=== PATIENT | female | born 1960 | race African-American/Black ===

== ENCOUNTER → 2018-01-08 | Outpatient (CLI) | payer MEDICARE, MEDICAID | END | disposition home or self-care (01) | LOC: MAMMO 07:23 | PROVIDERS: ATTEND Internal Medicine Pulmonary Disease | DX: Z12.31 Encounter for screening mammogram for malignant neoplasm of breast (principal) | CPT/HCPCS: 77067 ==

== ENCOUNTER 2018-02-02 16:22 | Emergency (ER) | payer MEDICARE, MEDICAID ==
[~2018-02-02] VITALS: Ht 172.7 cm; Wt 70.0 kg
[2018-02-02 19:10] VITALS: BP 159/109
[2018-02-02] MEDS ORDERED: LORAZEPAM 1MG TABLET PO ONE (19:15)
== END 2018-02-02 19:49 | disposition home or self-care (01) ==
LOC: ER 16:36
DX: F41.1 Generalized anxiety disorder (principal)
CPT/HCPCS: 99284

== ENCOUNTER 2018-06-27 15:23 | Emergency (ER) | payer MEDICARE, MEDICAID ==
[~2018-06-27] VITALS: Ht 167.6 cm; Wt 82.0 kg
[2018-06-27] MEDS ORDERED: KETOROLAC 60MG/2ML VIAL IM ONE (16:45)
[2018-06-27 17:08] LABS: BASOPHILS % 0.3 % (0.0-2.0); EOSINOPHILS % 0.8 % (0.0-5.0); HEMATOCRIT. 35.9 % (36.0-48.0); HEMOGLOBIN. 11.9 g/dL (12.0-16.0); LYMPHOCYTES % 35.9 % (20.0-50.0); MEAN CORPUSCULAR HEMOGLOBIN 31.2 pg (28.0-32.0); MEAN CORPUSCULAR VOLUME 94.1 fL (81.0-99.0); MEAN PLATELET VOLUME 9.8 fl (7.4-10.4); PLATELET 160 x1000/uL (130-400); RED BLOOD CELL COUNT 3.81 mill/uL (4.2-5.4); RED CELL DISTRIBUTION WIDTH 15.6 % (11.6-14.6)
[2018-06-27 17:16] LABS: CHLORIDE 106 mEq/L (98-107)
[2018-06-27 17:18] VITALS: BP 130/70
[2018-06-27 17:23] LABS: CREATINE KINASE 244 IU/L (26-192)
== END 2018-06-27 18:40 | disposition home or self-care (01) ==
LOC: ER 15:23
DX: R07.89 Other chest pain (principal); M54.9 Dorsalgia, unspecified; F32.9 Major depressive disorder, single episode, unspecified; F20.9 Schizophrenia, unspecified; V43.52XA Car driver injured in collision with other type car in traffic accident, initial encounter; Y93.89 Activity, other specified; Y92.89 Other specified places as the place of occurrence of the external cause; Y99.8 Other external cause status
CPT/HCPCS: 36415; 71045; 80053; 82550; 84484; 85025; 93005; 96372; 99285; J1885

== ENCOUNTER 2019-08-26 12:09 | Emergency (ER) | payer MEDICARE, MEDICAID ==
[~2019-08-26] VITALS: Ht 167.6 cm; Wt 81.0 kg
[2019-08-26 12:25] VITALS: BP 131/48
== END 2019-08-26 14:38 | disposition home or self-care (01) ==
LOC: ER 12:09
DX: R20.2 Paresthesia of skin (principal); F20.9 Schizophrenia, unspecified; F39 Unspecified mood [affective] disorder; I49.9 Cardiac arrhythmia, unspecified
CPT/HCPCS: 93005; 99283

== ENCOUNTER 2019-11-29 14:08 | Inpatient (IN) | payer MEDICARE, MEDICAID ==
[~2019-11-29] VITALS: Ht 167.6 cm; Wt 81.6 kg
[2019-11-30] MEDS ORDERED: ONDANSETRON HCL 4MG/2ML INJ IV STA (00:58)
[2019-11-30] MEDS ORDERED: SODIUM CHLORIDE 0.9% 1,000 ML IV ONE (00:58)
[2019-11-30 01:12] LABS: BASOPHILS % 0.2 % (0.0-2.0); EOSINOPHILS % 0.2 % (0.0-5.0); HEMATOCRIT. 45.6 % (36.0-48.0); HEMOGLOBIN. 15.1 g/dL (12.0-16.0); LYMPHOCYTES % 30.8 % (20.0-50.0); MEAN CORPUSCULAR HEMOGLOBIN 31.2 pg (28.0-32.0); MEAN CORPUSCULAR VOLUME 94.2 fL (81.0-99.0); MEAN PLATELET VOLUME 9.1 fl (7.4-10.4); MONOCYTES % 7.3 % (2.0-8.0); NEUTROPHILS % 61.5 % (40.0-76.0); PLATELET 271 x1000/uL (130-400); RED BLOOD CELL COUNT 4.84 mill/uL (4.2-5.4)
[2019-11-30 01:23] LABS: CHLORIDE 99 mEq/L (98-107)
[2019-11-30 01:32] LABS: CLARITY URINE CLEAR (CLEAR); COLOR URINE YELLOW (YELLOW); KETONES URINE 1+ (NEGATIVE); LEUKOCYTE ESTERASE URINE 1+ (NEGATIVE); NITRITE URINE NEGATIVE (NEGATIVE); OCCULT BLOOD URINE NEGATIVE (NEGATIVE); PH URINE 5.5 (4.5-8.0); PROTEIN URINE TRACE (NEGATIVE); SPECIFIC GRAVITY URINE 1.021 (1.005-1.030)
[2019-11-30 09:45] VITALS: BP 158/68
[2019-11-30] MEDS ORDERED: ONDA4TAB11 PO (10:24)
[2019-11-30] MEDS ORDERED: DIVA125T2 MT (10:24)
[2019-11-30] MEDS ORDERED: DOCU-138 MT (10:24)
[2019-11-30] MEDS ORDERED: QUET25TA MT (10:24)
[2019-11-30] MEDS ORDERED: RISP05 MT (10:24)
[2019-11-30] MEDS ORDERED: DIVALPROEX SODIUM 500MG ER TABLET PO SCH (10:45)
[2019-11-30] MEDS ORDERED: ONDANSETRON HCL 4MG/2ML INJ IV PRN (10:45)
[2019-11-30] MEDS ORDERED: KETOROLAC 15MG/ML VIAL IV PRN (10:45)
[2019-11-30 11:13] VITALS: BP 159/68
[2019-11-30] MEDS: OMEPRAZOLE 20MG CAPSULE EXTENDED RELEASE PO SCH (11:29)
[2019-11-30] MEDS: ENOXAPARIN 40MG/0.4ML SYR SUBCUT SCH (11:30)
[2019-11-30 12:00] VITALS: BP 149/75
[2019-11-30] MEDS: DEXT 5%/0.45% NACL KCL 20MEQ/L 1,000 ML IV SCH (13:44)
[2019-11-30 16:00] VITALS: BP 153/68
[2019-11-30] MEDS ORDERED: BENZTROPINE MESYLATE 1MG TABLET PO SCH (17:00)
[2019-11-30 20:00] VITALS: BP 120/55
[2019-11-30] MEDS ORDERED: MAGNESIUM HYDROXIDE 400MG/5ML 30ML UDC PO NR (20:45)
[2019-11-30] MEDS ORDERED: MAGNESIUM HYDROXIDE 400MG/5ML 30ML UDC PO PRN (20:45)
[2019-11-30] MEDS ORDERED: RISPERIDONE 1MG TABLET PO SCH (21:00)
[2019-12-01] VITALS: BP 135/67
[2019-12-01] MEDS: DEXT 5%/0.45% NACL KCL 20MEQ/L 1,000 ML IV SCH (02:42)
[2019-12-01 04:00] VITALS: BP 117/59
[2019-12-01] MEDS: OMEPRAZOLE 20MG CAPSULE EXTENDED RELEASE PO SCH (06:28)
[2019-12-01 07:19] LABS: BASOPHILS % 0.4 % (0.0-2.0); EOSINOPHILS % 0.4 % (0.0-5.0); HEMATOCRIT. 41.5 % (36.0-48.0); HEMOGLOBIN. 13.8 g/dL (12.0-16.0); LYMPHOCYTES % 29.7 % (20.0-50.0); MEAN CORPUSCULAR HEMOGLOBIN 31.3 pg (28.0-32.0); MEAN PLATELET VOLUME 8.9 fl (7.4-10.4); MONOCYTES % 6.8 % (2.0-8.0); NEUTROPHILS % 62.7 % (40.0-76.0); PLATELET 238 x1000/uL (130-400); RED BLOOD CELL COUNT 4.42 mill/uL (4.2-5.4); RED CELL DISTRIBUTION WIDTH 14.5 % (11.6-14.6)
[2019-12-01 08:00] VITALS: BP 147/69
[2019-12-01] MEDS: ENOXAPARIN 40MG/0.4ML SYR SUBCUT SCH (09:09)
[2019-12-01 09:44] LABS: CHLORIDE 103 mEq/L (98-107)
[2019-12-01 10:01] LABS: PHOSPHORUS 2.9 mg/dL (2.5-4.9)
[2019-12-01 12:00] VITALS: BP 140/69
[2019-12-01] MEDS ORDERED: IOHEXOL-300 100 ML BOTTLE ONE (14:06)
== END 2019-12-01 13:31 | disposition left against medical advice (07) | DRG 440 ==
LOC: ER 14:08 → CANRESERV 11-30 05:41 → ENRESERV 11-30 05:41 → 6EST 11-30 05:45 → EDBEDREQ 11-30 05:46 → EDBEDREQTM 11-30 05:46 → ENRESERV 11-30 08:31 → 6EST 11-30 10:55
PROVIDERS: ADMIT Internal Medicine Pulmonary Disease; ATTEND Internal Medicine Pulmonary Disease
DX: K85.90 Acute pancreatitis without necrosis or infection, unspecified (principal); F20.9 Schizophrenia, unspecified; F31.9 Bipolar disorder, unspecified; I10 Essential (primary) hypertension; K21.9 Gastro-esophageal reflux disease without esophagitis; K59.00 Constipation, unspecified; K86.9 Disease of pancreas, unspecified; N95.0 Postmenopausal bleeding; Z80.1 Family history of malignant neoplasm of trachea, bronchus and lung; Z98.1 Arthrodesis status; Z87.891 Personal history of nicotine dependence; Z53.29 Procedure and treatment not carried out because of patient's decision for other reasons
CPT/HCPCS: 36415; 74177; 76705; 76830; 76856; 80048; 80053; 81003; 83735; 84100; 85025; 86301; 86850; 86900; 99285; J1650; J2405; J7030; Q9967

== ENCOUNTER 2020-01-01 12:16 | Emergency (ER) | payer MEDICARE, MEDICAID ==
[~2020-01-01] VITALS: Ht 167.6 cm; Wt 82.0 kg
[~2020-01-01 12:16] MED LIST: DIVA125T2 MT; DOCU-138 MT; ONDA4TAB11 PO; QUET25TA MT; RISP05 MT
[2020-01-01 13:21] LABS: HEMATOCRIT. 42.6 % (36.0-48.0); HEMOGLOBIN. 14.5 g/dL (12.0-16.0); MEAN CORPUSCULAR HEMOGLOBIN 32.3 pg (28.0-32.0); MEAN CORPUSCULAR VOLUME 94.7 fL (81.0-99.0); PLATELET 211 x1000/uL (130-400); RED CELL DISTRIBUTION WIDTH 14.6 % (11.6-14.6)
[2020-01-01 13:25] LABS: CHLORIDE 102 mEq/L (98-107)
[2020-01-01 13:30] LABS: ETHANOL BLOOD < 10 mg/dL
[2020-01-01 14:05] LABS: PLATELET ESTIMATE NORMAL
[2020-01-01] MEDS ORDERED: SODIUM CHLORIDE 0.9% 1,000 ML IV NR (14:10)
[2020-01-01 15:05] LABS: *BARBITURATES SCREEN URINE NEGATIVE (NEGATIVE); *BENZODIAZEPINES SCREEN URINE NEGATIVE (NEGATIVE); *COCAINE SCREEN URINE NEGATIVE (NEGATIVE); METHADONE URINE SCREEN NEGATIVE (NEGATIVE)
[2020-01-01 15:06] LABS: *AMPHETAMINES SCREEN URINE NEGATIVE (NEGATIVE); CANNABINOID URINE SCREEN NEGATIVE (NEGATIVE); PHENCYCLIDINE URINE SCREEN NEGATIVE (NEGATIVE)
[2020-01-01] MEDS ORDERED: POTASSIUM CHLORIDE 20MEQ TABLET SR PO ONE ×2 (17:15→21:30)
[2020-01-01] MEDS ORDERED: LORAZEPAM 2MG/ML CPJ IM PRN (17:30)
[2020-01-01] MEDS ORDERED: HALOPERIDOL LACTATE 5MG/ML VIAL IM ONE (17:30)
[2020-01-01] MEDS ORDERED: MAGNESIUM 2 G PREMIX 50 ML IV ONE (18:15)
[2020-01-02 20:13] LABS: OPIATES URINE SCREEN NEGATIVE (NEGATIVE)
[2020-01-02] MEDS ORDERED: LORAZEPAM 2MG/ML CPJ IM ONE (20:15)
[2020-01-03 10:13] LABS: CLARITY URINE CLEAR (CLEAR); COLOR URINE YELLOW (YELLOW); KETONES URINE 1+ (NEGATIVE); LEUKOCYTE ESTERASE URINE 2+ (NEGATIVE); NITRITE URINE NEGATIVE (NEGATIVE); OCCULT BLOOD URINE NEGATIVE (NEGATIVE); PH URINE 6.5 (4.5-8.0); PROTEIN URINE NEGATIVE (NEGATIVE); SPECIFIC GRAVITY URINE 1.012 (1.005-1.030)
[2020-01-03] MEDS ORDERED: LORAZEPAM 2MG/ML CPJ IM PRN (19:00)
[2020-01-04 11:13] LABS: CHLORIDE 106 mEq/L (98-107)
[2020-01-04 16:14] VITALS: BP 147/78
== END 2020-01-04 16:43 ==
LOC: ER 12:34 → CANBEDREQ 01-02 02:03 → ER 01-04 16:43
DX: F23 Brief psychotic disorder (principal); I10 Essential (primary) hypertension; F31.9 Bipolar disorder, unspecified; G40.909 Epilepsy, unspecified, not intractable, without status epilepticus; Z75.1 Person awaiting admission to adequate facility elsewhere
CPT/HCPCS: 36415; 71045; 80048; 80053; 80305; 80320; 81025; 83880; 84484; 85025; 85379; 93005; 96365; 96372; 99285; J1630; J2060; J3475; G0480

== ENCOUNTER 2020-08-25 17:33 | Emergency (ER) | payer MEDICARE, MEDICAID ==
[~2020-08-25] VITALS: Ht 165.1 cm; Wt 75.0 kg
[2020-08-25] MEDS ORDERED: ONDANSETRON HCL 4MG/2ML INJ IV STA (18:34)
[2020-08-25 18:53] LABS: BASOPHILS % 0.6 % (0.0-2.0); EOSINOPHILS % 1.1 % (0.0-5.0); HEMATOCRIT. 37.8 % (36.0-48.0); HEMOGLOBIN. 12.6 g/dL (12.0-16.0); MEAN CORPUSCULAR HEMOGLOBIN 31.8 pg (28.0-32.0); MEAN CORPUSCULAR VOLUME 95.7 fL (81.0-99.0); MEAN PLATELET VOLUME 9.3 fl (7.4-10.4); MONOCYTES % 7.4 % (2.0-8.0); NEUTROPHILS % 48.9 % (40.0-76.0); PLATELET 194 x1000/uL (130-400); RED BLOOD CELL COUNT 3.95 mill/uL (4.2-5.4); RED CELL DISTRIBUTION WIDTH 16.6 % (11.6-14.6)
[2020-08-25 18:59] LABS: CHLORIDE 104 mEq/L (98-107)
[2020-08-25] MEDS ORDERED: MORPHINE SULFATE 4 MG/ML CPJ (NOT FOR IM USE) IV ONE (21:00)
[2020-08-25] MEDS ORDERED: ONDANSETRON HCL 4MG/2ML INJ IV ONE (21:00)
[2020-08-25 21:50] VITALS: BP 128/52
== END 2020-08-25 22:01 | disposition home or self-care (01) ==
LOC: ER 17:33
DX: R10.13 Epigastric pain (principal); Z98.1 Arthrodesis status
CPT/HCPCS: 36415; 76705; 80053; 85025; 96374; 96375; 96376; 99285; J2270; J2405

== ENCOUNTER 2020-08-27 21:53 | Emergency (ER) | payer MEDICARE, MEDICAID | END 2020-08-27 22:08 | disposition left against medical advice (07) | LOC: ER 21:53 | DX: Z53.21 Procedure and treatment not carried out due to patient leaving prior to being seen by health care provider (principal) ==

== ENCOUNTER 2020-11-09 06:42 | Emergency (ER) | payer MEDICARE, MEDICAID ==
[~2020-11-09] VITALS: Ht 167.6 cm; Wt 79.2 kg
[2020-11-09] MEDS ORDERED: OLANZAPINE 10MG TABLET PO STA (07:39)
[2020-11-09] MEDS ORDERED: ACETAMINOPHEN 325MG TABLET PO STA (07:39)
[2020-11-09 07:57] LABS: BASOPHILS % 0.5 % (0.0-2.0); EOSINOPHILS % 0.1 % (0.0-5.0); HEMATOCRIT. 38.9 % (36.0-48.0); LYMPHOCYTES % 19.7 % (20.0-50.0); MEAN CORPUSCULAR HEMOGLOBIN 31.2 pg (28.0-32.0); MEAN CORPUSCULAR VOLUME 93.3 fL (81.0-99.0); MEAN PLATELET VOLUME 9.1 fl (7.4-10.4); MONOCYTES % 8.9 % (2.0-8.0); NEUTROPHILS % 70.8 % (40.0-76.0); PLATELET 189 x1000/uL (130-400); RED BLOOD CELL COUNT 4.17 mill/uL (4.2-5.4); RED CELL DISTRIBUTION WIDTH 14.3 % (11.6-14.6)
[2020-11-09 08:05] LABS: CHLORIDE 102 mEq/L (98-107)
[2020-11-09 08:08] LABS: ETHANOL BLOOD < 10 mg/dL
[2020-11-09] MEDS ORDERED: POTASSIUM CHLORIDE 20MEQ TABLET SR PO ONE (08:15)
[2020-11-09 13:36] LABS: CLARITY URINE CLEAR (CLEAR); COLOR URINE YELLOW (YELLOW); KETONES URINE 3+ (NEGATIVE); LEUKOCYTE ESTERASE URINE 1+ (NEGATIVE); NITRITE URINE NEGATIVE (NEGATIVE); OCCULT BLOOD URINE NEGATIVE (NEGATIVE); PROTEIN URINE 1+ (NEGATIVE); SPECIFIC GRAVITY URINE 1.026 (1.005-1.030); UROBILINOGEN URINE 0.2 E.U./dL (0.2-1.0)
[2020-11-09 13:58] LABS: *AMPHETAMINES SCREEN URINE NEGATIVE (NEGATIVE); *BARBITURATES SCREEN URINE NEGATIVE (NEGATIVE); *COCAINE SCREEN URINE NEGATIVE (NEGATIVE); METHADONE URINE SCREEN NEGATIVE (NEGATIVE); OPIATES URINE SCREEN NEGATIVE (NEGATIVE)
[2020-11-09 13:59] LABS: CANNABINOID URINE SCREEN NEGATIVE (NEGATIVE); PHENCYCLIDINE URINE SCREEN NEGATIVE (NEGATIVE)
[2020-11-09 14:00] LABS: *BENZODIAZEPINES SCREEN URINE NEGATIVE (NEGATIVE)
[2020-11-09] MEDS: NITROFURANTOIN 100MG M/M CAPSULE PO SCH (22:27)
[2020-11-10] MEDS: NITROFURANTOIN 100MG M/M CAPSULE PO SCH ×2 (09:00→21:00)
[2020-11-10] MEDS: LORAZEPAM 1MG TABLET PO PRN (11:37)
[2020-11-10] MEDS ORDERED: LORAZEPAM 2MG/ML CPJ IM STA (20:49)
[2020-11-10] MEDS ORDERED: OLANZAPINE 10 MG/VIAL IM ONE (21:00)
[2020-11-11] MEDS: NITROFURANTOIN 100MG M/M CAPSULE PO SCH (14:00)
[2020-11-11] MEDS: LORAZEPAM 1MG TABLET PO PRN (15:22)
[2020-11-11] MEDS ORDERED: OLANZAPINE 10 MG/VIAL IM ONE (18:30)
[2020-11-11] MEDS ORDERED: OLANZAPINE 5MG TABLET PO STA (18:37)
[2020-11-11] MEDS ORDERED: POTASSIUM CHLORIDE 20MEQ TABLET SR PO NR (18:45)
[2020-11-11] MEDS ORDERED: LORAZEPAM 1MG TABLET PO ONE (18:45)
[2020-11-11 20:01] VITALS: BP 129/54
== END 2020-11-11 20:43 ==
LOC: ER 06:42
DX: F23 Brief psychotic disorder (principal); E87.6 Hypokalemia; Z20.822 Contact with and (suspected) exposure to COVID-19
CPT/HCPCS: 36415; 70450; 80053; 80305; 80320; 81003; 85025; 87426; 93005; 96372; 99285; J2060; J3490; G0480

== ENCOUNTER 2021-02-04 15:56 | Emergency (ER) | payer MEDICARE, MEDICAID ==
[~2021-02-04] VITALS: Ht 167.6 cm; Wt 81.0 kg
[2021-02-04 16:33] VITALS: BP 180/80
== END 2021-02-04 18:00 | disposition left against medical advice (07) ==
LOC: ER 16:15
DX: Z53.21 Procedure and treatment not carried out due to patient leaving prior to being seen by health care provider (principal); R51.9 Headache, unspecified

== ENCOUNTER 2021-02-10 08:48 | Emergency (ER) | payer MEDICARE, MEDICAID ==
[~2021-02-10] VITALS: Ht 167.6 cm; Wt 79.0 kg
[2021-02-10] MEDS ORDERED: SODIUM CHLORIDE 0.9% 1,000 ML IV ONE (09:15)
[2021-02-10 09:26] LABS: BASOPHILS % 0.4 % (0.0-2.0); EOSINOPHILS % 0.4 % (0.0-5.0); HEMATOCRIT. 41.4 % (36.0-48.0); HEMOGLOBIN. 13.5 g/dL (12.0-16.0); MEAN CORPUSCULAR HEMOGLOBIN 30.3 pg (28.0-32.0); MEAN CORPUSCULAR VOLUME 93.4 fL (81.0-99.0); MEAN PLATELET VOLUME 8.9 fl (7.4-10.4); MONOCYTES % 7.8 % (2.0-8.0); NEUTROPHILS % 65.4 % (40.0-76.0); PLATELET 218 x1000/uL (130-400); RED BLOOD CELL COUNT 4.44 mill/uL (4.2-5.4); RED CELL DISTRIBUTION WIDTH 14.3 % (11.6-14.6)
[2021-02-10 09:32] LABS: CHLORIDE 104 mEq/L (98-107)
[2021-02-10 09:37] LABS: ETHANOL BLOOD < 10 mg/dL
[2021-02-10 10:45] VITALS: BP 151/80
== END 2021-02-10 11:54 | disposition home or self-care (01) ==
LOC: ER 09:05
DX: F29 Unspecified psychosis not due to a substance or known physiological condition (principal); Z79.899 Other long term (current) drug therapy
CPT/HCPCS: 36415; 70450; 71045; 80053; 80307; 80320; 82140; 82962; 83880; 84443; 84484; 85025; 93005; 96360; 99285; J7030; G0480

== ENCOUNTER → 2021-09-13 | Outpatient (CLI) | payer MEDICARE, MEDICAID | END | disposition home or self-care (01) | LOC: RAD 08:48 | PROVIDERS: ATTEND Internal Medicine Pulmonary Disease | DX: Z12.31 Encounter for screening mammogram for malignant neoplasm of breast (principal); J98.4 Other disorders of lung; N64.89 Other specified disorders of breast | CPT/HCPCS: 71046; 77063; 77067 ==

== ENCOUNTER 2022-02-07 16:53 | Emergency (ER) | payer MEDICARE, MEDICAID | END 2022-02-07 19:00 | disposition left against medical advice (07) | LOC: ER 16:53 | DX: M54.9 Dorsalgia, unspecified (principal); Z53.21 Procedure and treatment not carried out due to patient leaving prior to being seen by health care provider ==

== ENCOUNTER 2023-01-16 07:03 | Emergency (ER) | payer MEDICARE, MEDICAID ==
[~2023-01-16] VITALS: Ht 167.6 cm; Wt 68.0 kg
[2023-01-16 07:16] VITALS: BP 209/95
[2023-01-16 10:08] LABS: BASOPHILS % 0.4 % (0.0-2.0); EOSINOPHILS % 0.2 % (0.0-5.0); HEMATOCRIT. 39.4 % (36.0-48.0); HEMOGLOBIN. 13.1 g/dL (12.0-16.0); LYMPHOCYTES % 35.9 % (20.0-50.0); MEAN CORPUSCULAR HEMOGLOBIN 31.2 pg (28.0-32.0); MEAN PLATELET VOLUME 8.9 fl (7.4-10.4); MONOCYTES % 6.6 % (2.0-8.0); NEUTROPHILS % 56.9 % (40.0-76.0); PLATELET 224 x1000/uL (130-400); RED BLOOD CELL COUNT 4.19 mill/uL (4.2-5.4); RED CELL DISTRIBUTION WIDTH 14.6 % (11.6-14.6)
[2023-01-16 10:19] LABS: CHLORIDE 104 mEq/L (98-107)
[2023-01-16 10:33] LABS: ETHANOL BLOOD < 10 mg/dL
[2023-01-16 14:01] LABS: CLARITY URINE CLEAR (CLEAR); COLOR URINE YELLOW (YELLOW); KETONES URINE 2+ (NEGATIVE); LEUKOCYTE ESTERASE URINE 1+ (NEGATIVE); NITRITE URINE NEGATIVE (NEGATIVE); OCCULT BLOOD URINE NEGATIVE (NEGATIVE); PROTEIN URINE TRACE (NEGATIVE); SPECIFIC GRAVITY URINE 1.023 (1.005-1.030)
[2023-01-16 14:19] LABS: *AMPHETAMINES SCREEN URINE NEGATIVE (NEGATIVE); *BARBITURATES SCREEN URINE NEGATIVE (NEGATIVE); *BENZODIAZEPINES SCREEN URINE NEGATIVE (NEGATIVE); *COCAINE SCREEN URINE NEGATIVE (NEGATIVE); CANNABINOID URINE SCREEN NEGATIVE (NEGATIVE); METHADONE URINE SCREEN NEGATIVE (NEGATIVE); OPIATES URINE SCREEN NEGATIVE (NEGATIVE); PHENCYCLIDINE URINE SCREEN NEGATIVE (NEGATIVE)
[2023-01-16] MEDS ORDERED: RISPERIDONE 0.5MG TABLET PO SCH (21:00)
== END 2023-01-16 19:01 | disposition left against medical advice (07) ==
LOC: ER 07:03
DX: F23 Brief psychotic disorder (principal); I10 Essential (primary) hypertension; R51.9 Headache, unspecified; Z91.14 Patient's other noncompliance with medication regimen; Z20.822 Contact with and (suspected) exposure to COVID-19; Z86.59 Personal history of other mental and behavioral disorders
CPT/HCPCS: 36415; 70450; 80053; 80305; 80307; 80320; 80329; 81003; 82140; 84443; 85025; 87426; 99284; C9803; G0480

== ENCOUNTER 2023-01-17 06:17 | Emergency (ER) | payer MEDICARE, MEDICAID ==
[~2023-01-17] VITALS: Ht 167.6 cm; Wt 66.0 kg
[2023-01-17 06:29] VITALS: BP 118/68
== END 2023-01-17 07:15 | disposition left against medical advice (07) ==
LOC: ER 06:17
DX: Z53.21 Procedure and treatment not carried out due to patient leaving prior to being seen by health care provider (principal)
CPT/HCPCS: 99281

== ENCOUNTER 2023-02-09 15:01 | Emergency (ER) | payer MEDICARE, MEDICAID ==
[~2023-02-09] VITALS: Ht 167.6 cm; Wt 82.0 kg
[2023-02-09 15:26] VITALS: BP 173/54
[2023-02-09 17:45] LABS: CLARITY URINE CLEAR (CLEAR); COLOR URINE YELLOW (YELLOW); KETONES URINE 2+ (NEGATIVE); LEUKOCYTE ESTERASE URINE 1+ (NEGATIVE); NITRITE URINE NEGATIVE (NEGATIVE); OCCULT BLOOD URINE NEGATIVE (NEGATIVE); PH URINE 5.5 (4.5-8.0); PROTEIN URINE TRACE (NEGATIVE); SPECIFIC GRAVITY URINE 1.031 (1.005-1.030)
[2023-02-09 17:57] LABS: *AMPHETAMINES SCREEN URINE NEGATIVE (NEGATIVE); *BARBITURATES SCREEN URINE NEGATIVE (NEGATIVE); *BENZODIAZEPINES SCREEN URINE NEGATIVE (NEGATIVE); *COCAINE SCREEN URINE NEGATIVE (NEGATIVE); CANNABINOID URINE SCREEN NEGATIVE (NEGATIVE); METHADONE URINE SCREEN NEGATIVE (NEGATIVE); OPIATES URINE SCREEN NEGATIVE (NEGATIVE); PHENCYCLIDINE URINE SCREEN NEGATIVE (NEGATIVE)
[2023-02-09 17:59] LABS: BASOPHILS % 0.5 % (0.0-2.0); EOSINOPHILS % 0.4 % (0.0-5.0); HEMOGLOBIN. 12.7 g/dL (12.0-16.0); LYMPHOCYTES % 43.8 % (20.0-50.0); MEAN CORPUSCULAR VOLUME 93.1 fL (81.0-99.0); MEAN PLATELET VOLUME 8.9 fl (7.4-10.4); NEUTROPHILS % 47.3 % (40.0-76.0); PLATELET 219 x1000/uL (130-400); RED BLOOD CELL COUNT 4.08 mill/uL (4.2-5.4)
[2023-02-09 18:11] LABS: CHLORIDE 104 mEq/L (98-107)
[2023-02-09 18:18] LABS: ETHANOL BLOOD < 10 mg/dL
== END 2023-02-09 18:31 | disposition left against medical advice (07) ==
LOC: ER 15:01
DX: R51.9 Headache, unspecified (principal); Z87.891 Personal history of nicotine dependence
CPT/HCPCS: 36415; 80053; 80305; 80320; 81003; 85025; 99283; G0480

== ENCOUNTER 2023-05-17 11:50 | Emergency (ER) | payer MEDICARE, MEDICAID ==
[~2023-05-17] VITALS: Ht 167.6 cm; Wt 82.0 kg
[2023-05-17 12:13] VITALS: BP 176/93; PULSE 97; RESP 20; TEMP 98.3; O2SAT 99
== END 2023-05-17 13:24 | disposition home or self-care (01) ==
LOC: ER 12:03
DX: R68.89 Other general symptoms and signs (principal); I10 Essential (primary) hypertension; F20.9 Schizophrenia, unspecified
CPT/HCPCS: 99281

== ENCOUNTER 2023-05-29 17:55 | Inpatient (IN) | payer MEDICARE, MEDICAID ==
[~2023-05-29] VITALS: Ht 167.6 cm; Wt 85.5 kg
[2023-05-29 18:02] VITALS: O2SAT 99
[2023-05-29 18:59] LABS: BASOPHILS % 0.3 % (0.0-2.0); EOSINOPHILS % 0.9 % (0.0-5.0); HEMATOCRIT. 33.6 % (36.0-48.0); HEMOGLOBIN. 11.2 g/dL (12.0-16.0); LYMPHOCYTES % 24.5 % (20.0-50.0); MEAN CORPUSCULAR HEMOGLOBIN 31.3 pg (28.0-32.0); MEAN CORPUSCULAR HGB CONC 33.3 g/dL (31.0-37.0); MEAN CORPUSCULAR VOLUME 93.8 fL (81.0-99.0); MONOCYTES % 7.8 % (2.0-8.0); NEUTROPHILS % 66.5 % (40.0-76.0); PLATELET 296 x1000/uL (130-400); RED BLOOD CELL COUNT 3.58 mill/uL (4.2-5.4); WHITE BLOOD COUNT 8.7 x1000/uL (4.5-11.0)
[2023-05-29 19:09] LABS: CHLORIDE 105 mEq/L (98-107); INDEX HEMOLYSI 1 (1-3); INDEX ICTERIC 1 (1-4); INDEX LIPEMIC 1 (1-3); POTASSIUM 3.1 mEq/L (3.5-5.1); SODIUM 139 mEq/L (136-145)
[2023-05-29 19:12] LABS: ALBUMIN 3.3 g/dL (3.4-5.0); CARBON DIOXIDE 31 mEq/L (21-32); GLUCOSE 97 mg/dL (70-105); UREA NITROGEN BLOOD 13 mg/dL (7-21)
[2023-05-29 19:19] LABS: ALANINE AMINOTRANSFERASE 31 IU/L (13-61); ASPARTATE AMINOTRANSFERASE 12 IU/L (15-37); BILIRUBIN TOTAL 0.3 mg/dL (0.1-1.0); CREATININE 0.9 mg/dL (0.6-1.3); PROTEIN TOTAL 7.8 g/dL (6.0-8.3)
[2023-05-29 19:36] LABS: TROPONIN I HIGH SENSITIVITY 102 ng/L (<54)
[2023-05-29] MEDS ORDERED: ASPIRIN 81MG TABLET PO ONE (20:45)
[2023-05-29] MEDS ORDERED: POTASSIUM CHLORIDE 20MEQ TABLET SR PO NR (23:15)
[2023-05-29] MEDS ORDERED: MAGNESIUM/ALUMINUM HYDROXIDE/SIMETHICONE 30ML UDC PO PRN (23:15)
[2023-05-29] MEDS ORDERED: CLONIDINE 0.1MG TABLET PO PRN (23:15)
[2023-05-29] MEDS ORDERED: GUAIFENESIN 200MG/10ML SUGAR FREE UDC PO PRN (23:15)
[2023-05-29] MEDS ORDERED: NITROGLYCERIN 0.4MG TABLET SL SL PRN (23:15)
[2023-05-29] MEDS ORDERED: DOCUSATE SODIUM 100MG CAPSULE PO PRN (23:15)
[2023-05-29] MEDS ORDERED: ACETAMINOPHEN 325MG TABLET PO PRN ×2 (23:15)
[2023-05-29] MEDS ORDERED: IPRATROPIUM/ALBUTEROL 0.5-3(2.5)MG/3ML NEB HHN PRN (23:15)
[2023-05-29] MEDS ORDERED: ONDANSETRON HCL 4MG/2ML INJ IV PRN (23:15)
[2023-05-29] MEDS ORDERED: HEPARIN 5000 UNITS/ML VIAL IV SCH (23:30)
[2023-05-29] MEDS ORDERED: HEPARIN 5000 UNITS/ML VIAL IV PRN ×2 (23:30)
[2023-05-29] MEDS ORDERED: HEPARIN 25,000 UNITS PREMIX 250 ML IV PRN (23:30)
[2023-05-29] MEDS ORDERED: HEPARIN 5000 UNITS/ML VIAL IV NR (23:45)
[2023-05-30] MEDS ORDERED: HEPARIN 5000 UNITS/ML VIAL IV PRN
[2023-05-30 00:12] LABS: CLARITY URINE CLEAR (CLEAR); COLOR URINE YELLOW (YELLOW); GLUCOSE URINE NEGATIVE (NEGATIVE); KETONES URINE NEGATIVE (NEGATIVE); LEUKOCYTE ESTERASE URINE TRACE (NEGATIVE); NITRITE URINE NEGATIVE (NEGATIVE); OCCULT BLOOD URINE NEGATIVE (NEGATIVE); PROTEIN URINE NEGATIVE (NEGATIVE); SPECIFIC GRAVITY URINE 1.013 (1.005-1.030)
[2023-05-30 00:13] LABS: INDEX HEMOLYSI 1 (1-3); INDEX ICTERIC 1 (1-4); INDEX LIPEMIC 1 (1-3)
[2023-05-30 00:15] LABS: PARTIAL THROMBOPLASTIN TIME 28.9 sec (23.4-31.0); PROTHROMBIN TIME 10.8 sec (9.6-11.0)
[2023-05-30 00:17] LABS: ACETAMINOPHEN <2 ug/mL ug/mL (10-30); ETHANOL BLOOD < 10 mg/dL (-10); IRON 26 ug/dL (50-175); PHOSPHORUS 3.5 mg/dL (2.5-4.9); TOTAL IRON BINDING CAPACITY 297 ug/dL (250-450)
[2023-05-30 00:26] LABS: *AMPHETAMINES SCREEN URINE NEGATIVE (NEGATIVE); *BARBITURATES SCREEN URINE NEGATIVE (NEGATIVE); *BENZODIAZEPINES SCREEN URINE NEGATIVE (NEGATIVE); *COCAINE SCREEN URINE NEGATIVE (NEGATIVE); CANNABINOID URINE SCREEN NEGATIVE (NEGATIVE); ECSTASY MDMA SCREEN URINE NEGATIVE (NEGATIVE); METHADONE URINE SCREEN NEGATIVE (NEGATIVE); OPIATES URINE SCREEN NEGATIVE (NEGATIVE); PHENCYCLIDINE URINE SCREEN NEGATIVE (NEGATIVE)
[2023-05-30 00:27] LABS: RBC URINE 0-2 /hpf (0-2); SQUAMOUS EPITHELIAL CELL URINE FEW /lpf (RARE/1+); WBC URINE 0-2 /hpf (0-2)
[2023-05-30 00:28] LABS: BACTERIA URINE NONE SEEN
[2023-05-30] MEDS ORDERED: NITROGLYCERIN 0.4MG TABLET SL SL PRN (00:45)
[2023-05-30 00:46] LABS: VITAMIN B12 SERUM 745 pg/mL (211-911)
[2023-05-30 00:57] LABS: TROPONIN I HIGH SENSITIVITY 109 ng/L (<54)
[2023-05-30 07:09] LABS: BASOPHILS % 0.2 % (0.0-2.0); EOSINOPHILS % 0.5 % (0.0-5.0); HEMATOCRIT. 33.2 % (36.0-48.0); LYMPHOCYTES % 19.3 % (20.0-50.0); MEAN CORPUSCULAR HGB CONC 33.2 g/dL (31.0-37.0); MEAN CORPUSCULAR VOLUME 93.5 fL (81.0-99.0); MEAN PLATELET VOLUME 7.8 fl (7.4-10.4); MONOCYTES % 7.4 % (2.0-8.0); NEUTROPHILS % 72.6 % (40.0-76.0); PLATELET 298 x1000/uL (130-400); RED BLOOD CELL COUNT 3.55 mill/uL (4.2-5.4); RED CELL DISTRIBUTION WIDTH 15.9 % (11.6-14.6); WHITE BLOOD COUNT 9.9 x1000/uL (4.5-11.0)
[2023-05-30 07:33] LABS: CHLORIDE 104 mEq/L (98-107); INDEX HEMOLYSI 1 (1-3); INDEX ICTERIC 1 (1-4); INDEX LIPEMIC 1 (1-3); POTASSIUM 3.4 mEq/L (3.5-5.1); SODIUM 137 mEq/L (136-145)
[2023-05-30 07:48] LABS: ALANINE AMINOTRANSFERASE 26 IU/L (13-61); ALBUMIN 3.3 g/dL (3.4-5.0); ASPARTATE AMINOTRANSFERASE 10 IU/L (15-37); BILIRUBIN TOTAL 0.4 mg/dL (0.1-1.0); CALCIUM 8.9 mg/dL (8.5-10.1); CARBON DIOXIDE 28 mEq/L (21-32); CHOLESTEROL 183 mg/dL (<200); CREATINE KINASE 174 IU/L (26-192); CREATINE KINASE MB FRACTION 1.2 ng/mL (0.5-3.6); CREATININE 0.7 mg/dL (0.6-1.3); GLUCOSE 117 mg/dL (70-105); HDL CHOLESTEROL 105 mg/dL (40-59); LDL CHOLESTEROL 80 mg/dL (5-100); PROTEIN TOTAL 7.9 g/dL (6.0-8.3); TRIGLYCERIDE 47 mg/dL (0-150); UREA NITROGEN BLOOD 10 mg/dL (7-21)
[2023-05-30 08:33] LABS: TROPONIN I HIGH SENSITIVITY 112 ng/L (<54)
[2023-05-30] MEDS ORDERED: AMLODIPINE 10MG TABLET PO SCH (09:00)
[2023-05-30] MEDS ORDERED: FAMOTIDINE 20MG TABLET PO SCH (09:00)
[2023-05-30] MEDS ORDERED: ASPIRIN 81MG TABLET PO SCH (09:00)
[2023-05-30] MEDS ORDERED: AMLODIPINE 5MG TABLET PO SCH (09:12)
[2023-05-30 10:05] VITALS: BP 153/62; PULSE 50; RESP 22; TEMP 98.3
[2023-05-30] MEDS ORDERED: QUETIAPINE FUMARATE 25MG TABLET PO SCH (21:00)
[2023-05-30] MEDS ORDERED: ATORVASTATIN CALCIUM 40MG TABLET PO SCH (21:00)
== END 2023-05-30 14:08 | disposition left against medical advice (07) | DRG 281 ==
LOC: ER 17:55 → MICUSO 22:03
PROVIDERS: ADMIT Internal Medicine; ATTEND Internal Medicine
DX: I21.4 Non-ST elevation (NSTEMI) myocardial infarction (principal); E46 Unspecified protein-calorie malnutrition; D64.9 Anemia, unspecified; E87.6 Hypokalemia; I10 Essential (primary) hypertension; Z53.29 Procedure and treatment not carried out because of patient's decision for other reasons; F20.9 Schizophrenia, unspecified; F31.9 Bipolar disorder, unspecified; Z68.30 Body mass index [BMI] 30.0-30.9, adult; Z79.899 Other long term (current) drug therapy
CPT/HCPCS: 36415; 71045; 80053; 80061; 80305; 80307; 80320; 80329; 81003; 82550; 82553; 82607; 82746; 83036; 83540; 83550; 83735; 84100; 84484; 85025; 93005; 93970; 99291; J1644; G0480

== ENCOUNTER 2023-06-11 16:54 | Emergency (ER) | payer MEDICARE, MEDICAID ==
[~2023-06-11] VITALS: Ht 167.6 cm; Wt 82.0 kg
[2023-06-11 16:57] VITALS: BP 155/65; PULSE 56; RESP 18; TEMP 98.6; O2SAT 98
[2023-06-11] MEDS ORDERED: IBUPROFEN 600MG TABLET PO ONE (18:00)
[2023-06-11] MEDS ORDERED: IBUP-2029 MT (18:44)
== END 2023-06-11 20:36 | disposition home or self-care (01) ==
LOC: ER 16:54
DX: M25.571 Pain in right ankle and joints of right foot (principal)
CPT/HCPCS: 73610; 73630; 99284

== ENCOUNTER 2023-06-12 17:26 | Inpatient (IN) | payer MEDICARE, MEDICAID ==
[~2023-06-12] VITALS: Ht 167.6 cm; Wt 83.9 kg
[~2023-06-12 17:26] MED LIST changes: +IBUP-2029 MT
[2023-06-12 17:38] VITALS: O2SAT 98
[2023-06-12 18:28] LABS: BASOPHILS % 0.4 % (0.0-2.0); EOSINOPHILS % 0.9 % (0.0-5.0); HEMATOCRIT. 35.6 % (36.0-48.0); HEMOGLOBIN. 11.5 g/dL (12.0-16.0); LYMPHOCYTES % 33.8 % (20.0-50.0); MEAN CORPUSCULAR HGB CONC 32.4 g/dL (31.0-37.0); MEAN CORPUSCULAR VOLUME 95.7 fL (81.0-99.0); MEAN PLATELET VOLUME 8.5 fl (7.4-10.4); MONOCYTES % 6.7 % (2.0-8.0); NEUTROPHILS % 58.2 % (40.0-76.0); PLATELET 226 x1000/uL (130-400); RED BLOOD CELL COUNT 3.72 mill/uL (4.2-5.4); RED CELL DISTRIBUTION WIDTH 15.1 % (11.6-14.6); WHITE BLOOD COUNT 7.2 x1000/uL (4.5-11.0)
[2023-06-12 18:40] LABS: CHLORIDE 106 mEq/L (98-107); INDEX HEMOLYSI 1 (1-3); INDEX ICTERIC 1 (1-4); INDEX LIPEMIC 1 (1-3); POTASSIUM 3.4 mEq/L (3.5-5.1); SODIUM 137 mEq/L (136-145)
[2023-06-12 18:49] LABS: ALANINE AMINOTRANSFERASE 16 IU/L (13-61); ALBUMIN 3.7 g/dL (3.4-5.0); ASPARTATE AMINOTRANSFERASE 10 IU/L (15-37); BILIRUBIN TOTAL 0.3 mg/dL (0.1-1.0); CALCIUM 9.2 mg/dL (8.5-10.1); CARBON DIOXIDE 29 mEq/L (21-32); CREATININE 0.9 mg/dL (0.6-1.3); GLUCOSE 94 mg/dL (70-105); NT PRO B-TYPE NATRIURETIC PEP 128 pg/mL (5-125); PROTEIN TOTAL 8.2 g/dL (6.0-8.3); UREA NITROGEN BLOOD 15 mg/dL (7-21)
[2023-06-12 18:52] LABS: TROPONIN I HIGH SENSITIVITY 116 ng/L (<54)
[2023-06-12 18:55] LABS: INR 1.1; PARTIAL THROMBOPLASTIN TIME 30.6 sec (23.4-31.0); PROTHROMBIN TIME 11.5 sec (9.6-11.0)
[2023-06-12] MEDS ORDERED: ASPIRIN 325MG TABLET PO ONE (19:30)
[2023-06-12 20:18] LABS: TROPONIN I HIGH SENSITIVITY 124 ng/L (<54)
[2023-06-13] MEDS ORDERED: IPRATROPIUM/ALBUTEROL 0.5-3(2.5)MG/3ML NEB HHN PRN (00:45)
[2023-06-13] MEDS ORDERED: DEXTROSE 50% WATER 50ML SYRINGE IV PRN (00:45)
[2023-06-13] MEDS ORDERED: ATORVASTATIN CALCIUM 40MG TABLET PO SCH (00:45)
[2023-06-13 01:06] VITALS: BP 161/75; PULSE 85; RESP 20; TEMP 98
[2023-06-13 04:00] VITALS: BP 158/65; PULSE 45; RESP 18; TEMP 98
[2023-06-13] MEDS ORDERED: ENOXAPARIN 80MG/0.8ML SYR SUBCUT SCH (06:00)
[2023-06-13] MEDS ORDERED: POTASSIUM CHLORIDE 20MEQ TABLET SR PO NR (07:45)
[2023-06-13 08:12] LABS: CREATINE KINASE MB FRACTION 1.3 ng/mL (0.5-3.6)
[2023-06-13] MEDS ORDERED: ASPIRIN 81MG EC TABLET PO SCH (09:00)
[2023-06-13] MEDS ORDERED: CLOPIDOGREL 75MG TABLET PO SCH (09:00)
[2023-06-13] MEDS ORDERED: LISINOPRIL 10MG TABLET PO SCH (09:00)
[2023-06-13] MEDS ORDERED: BLOOD SUGAR DIAGNOSTIC STRIP TEST SCH (09:00)
[2023-06-13 09:06] LABS: PHOSPHORUS 3.1 mg/dL (2.5-4.9)
[2023-06-13] MEDS ORDERED: KCL 20MEQ/100ML PREMIX 100 ML IV NR (10:00)
[2023-06-13 12:53] LABS: D-DIMER 0.31 mg/L FEU (<0.50); INR 1.1; PROTHROMBIN TIME 11.6 sec (9.6-11.0)
[2023-06-13] MEDS ORDERED: FAMOTIDINE 20MG TABLET PO SCH (21:00)
== END 2023-06-13 13:23 | disposition left against medical advice (07) | DRG 282 ==
LOC: ER 17:26 → 8WST 22:19 → EDBEDREQ 22:30 → EDBEDREQTM 22:30 → ENRESERV 23:09
PROVIDERS: ADMIT Internal Medicine; ATTEND Internal Medicine
DX: R00.2 Palpitations (principal); I21.A1 Myocardial infarction type 2; E87.6 Hypokalemia; D64.9 Anemia, unspecified; M41.9 Scoliosis, unspecified; M41.34 Thoracogenic scoliosis, thoracic region; Z53.29 Procedure and treatment not carried out because of patient's decision for other reasons; F20.9 Schizophrenia, unspecified; I10 Essential (primary) hypertension; F31.9 Bipolar disorder, unspecified; Z91.51 Personal history of suicidal behavior; R77.8 Other specified abnormalities of plasma proteins
CPT/HCPCS: 36415; 71045; 80053; 80061; 82550; 82553; 82962; 83036; 83735; 83880; 84100; 84484; 85025; 85379; 93005; 99285; J1650; J3480

== ENCOUNTER 2023-06-18 17:25 | Emergency (ER) | payer MEDICARE, MEDICAID ==
[~2023-06-18] VITALS: Ht 162.6 cm; Wt 75.0 kg
[2023-06-18 17:36] VITALS: BP 172/62; PULSE 52; RESP 16; TEMP 98.4; O2SAT 97
[2023-06-18] MEDS ORDERED: IBUP-2029 MT (17:48)
== END 2023-06-18 18:41 | disposition home or self-care (01) ==
LOC: ER 17:25
DX: Z76.0 Encounter for issue of repeat prescription (principal); Z79.899 Other long term (current) drug therapy
CPT/HCPCS: 99282

== ENCOUNTER 2023-06-23 11:22 | Emergency (ER) | payer MEDICARE, MEDICAID ==
[~2023-06-23] VITALS: Ht 170.2 cm; Wt 72.0 kg
[2023-06-23 11:27] VITALS: BP 136/70; PULSE 55; RESP 20; TEMP 98.3; O2SAT 98
[2023-06-23] MEDS ORDERED: TOPUD MT (13:43)
== END 2023-06-23 15:15 | disposition home or self-care (01) ==
LOC: ER 11:22
DX: M79.671 Pain in right foot (principal)
CPT/HCPCS: 99281

== ENCOUNTER 2023-07-03 15:29 | Emergency (ER) | payer MEDICARE, MEDICAID ==
[~2023-07-03] VITALS: Ht 167.6 cm; Wt 82.0 kg
[~2023-07-03 15:29] MED LIST changes: +TOPUD MT
[2023-07-03 15:44] VITALS: BP 133/55; TEMP 99.1; O2SAT 100
[2023-07-03 15:48] VITALS: PULSE 62; RESP 20
== END 2023-07-03 17:55 | disposition left against medical advice (07) ==
LOC: ER 15:29
DX: M77.31 Calcaneal spur, right foot (principal)
CPT/HCPCS: 99281

== ENCOUNTER 2023-07-08 15:39 | Emergency (ER) | payer MEDICARE, MEDICAID ==
[~2023-07-08] VITALS: Ht 167.6 cm; Wt 82.0 kg
[2023-07-08 15:56] VITALS: BP 164/46; PULSE 62; RESP 18; TEMP 98.6; O2SAT 100
== END 2023-07-08 17:04 | disposition left against medical advice (07) ==
LOC: ER 15:39
DX: M77.31 Calcaneal spur, right foot (principal)
CPT/HCPCS: 99281

== ENCOUNTER 2023-07-26 16:25 | Emergency (ER) | payer MEDICARE, MEDICAID ==
[~2023-07-26] VITALS: Ht 167.6 cm; Wt 82.0 kg
[2023-07-26 16:26] VITALS: PULSE 75
[2023-07-26 16:31] VITALS: BP 137/41; RESP 16; O2SAT 100
[2023-07-26] MEDS ORDERED: IBUP-2029 MT (17:23)
[2023-07-26 17:30] VITALS: TEMP 98.5
[2023-07-26] MEDS ORDERED: ACETAMINOPHEN 500MG TABLET PO ONE (17:30)
== END 2023-07-26 17:58 | disposition home or self-care (01) ==
LOC: ER 16:25
DX: M79.671 Pain in right foot (principal); I10 Essential (primary) hypertension; Z79.899 Other long term (current) drug therapy
CPT/HCPCS: 73630; 99283

== ENCOUNTER 2023-08-02 13:46 | Emergency (ER) | payer MEDICARE, MEDICAID ==
[~2023-08-02] VITALS: Ht 175.3 cm; Wt 77.0 kg
[2023-08-02 14:08] VITALS: BP 130/75; PULSE 60; RESP 18; TEMP 98.1; O2SAT 100
== END 2023-08-02 16:12 | disposition left against medical advice (07) ==
LOC: ER 14:05
DX: Z53.21 Procedure and treatment not carried out due to patient leaving prior to being seen by health care provider (principal)
CPT/HCPCS: 99281

== ENCOUNTER 2024-02-13 12:31 | Emergency (ER) | payer MEDICARE, MEDICAID ==
[~2024-02-13] VITALS: Ht 172.7 cm; Wt 59.0 kg
[2024-02-13 13:00] VITALS: O2SAT 99
[2024-02-13 14:01] LABS: BASOPHILS % 0.5 % (0.0-2.0); EOSINOPHILS % 0.2 % (0.0-5.0); HEMATOCRIT. 35.7 % (36.0-48.0); HEMOGLOBIN. 11.7 g/dL (12.0-16.0); LYMPHOCYTES % 25.4 % (20.0-50.0); MEAN CORPUSCULAR HEMOGLOBIN 30.4 pg (28.0-32.0); MEAN CORPUSCULAR HGB CONC 32.8 g/dL (31.0-37.0); MEAN CORPUSCULAR VOLUME 92.8 fL (81.0-99.0); MEAN PLATELET VOLUME 8.7 fl (7.4-10.4); MONOCYTES % 11.1 % (2.0-8.0); NEUTROPHILS % 62.8 % (40.0-76.0); PLATELET 210 x1000/uL (130-400); RED BLOOD CELL COUNT 3.85 mill/uL (4.2-5.4); RED CELL DISTRIBUTION WIDTH 14.7 % (11.6-14.6); WHITE BLOOD COUNT 7.1 x1000/uL (4.5-11.0)
[2024-02-13 14:07] LABS: CHLORIDE 106 mEq/L (98-107); POTASSIUM 4.5 mEq/L (3.5-5.1); SODIUM 143 mEq/L (136-145)
[2024-02-13 14:08] LABS: CARBON DIOXIDE 28 mEq/L (21-32)
[2024-02-13 14:09] LABS: CALCIUM 9.4 mg/dL (8.7-10.4)
[2024-02-13 14:13] LABS: CREATININE 0.8 mg/dL (0.6-1.0); GLUCOSE 88 mg/dL (70-105); UREA NITROGEN BLOOD 20 mg/dL (9-23)
[2024-02-13 14:14] LABS: VALPROIC ACID 8.1 ug/mL (50-100)
[2024-02-13 14:15] LABS: ACETAMINOPHEN < 2 ug/mL (10-30); ALANINE AMINOTRANSFERASE 38 IU/L (10-49); ALBUMIN 4.2 g/dL (3.2-4.8); ASPARTATE AMINOTRANSFERASE 46 IU/L (<34)
[2024-02-13 14:16] LABS: BILIRUBIN TOTAL 0.6 mg/dL (0.1-1.0); PROTEIN TOTAL 7.8 g/dL (6.0-8.3)
[2024-02-13 14:18] LABS: ETHANOL BLOOD < 10 mg/dL (<10)
[2024-02-13 17:12] LABS: CLARITY URINE CLEAR (CLEAR); COLOR URINE DARK YELLOW (YELLOW); GLUCOSE URINE NEGATIVE (NEGATIVE); KETONES URINE TRACE (NEGATIVE); LEUKOCYTE ESTERASE URINE NEGATIVE (NEGATIVE); NITRITE URINE NEGATIVE (NEGATIVE); OCCULT BLOOD URINE NEGATIVE (NEGATIVE); PH URINE 5.5 (4.5-8.0); PROTEIN URINE TRACE (NEGATIVE); SPECIFIC GRAVITY URINE 1.036 (1.005-1.030)
[2024-02-13 17:23] LABS: *AMPHETAMINES SCREEN URINE NEGATIVE (NEGATIVE); *BARBITURATES SCREEN URINE NEGATIVE (NEGATIVE); *BENZODIAZEPINES SCREEN URINE NEGATIVE (NEGATIVE); *COCAINE SCREEN URINE NEGATIVE (NEGATIVE); METHADONE URINE SCREEN Neg (NEGATIVE); OPIATES URINE SCREEN NEGATIVE (NEGATIVE)
[2024-02-13 17:24] LABS: CANNABINOID URINE SCREEN NEGATIVE (NEGATIVE); ECSTASY MDMA SCREEN URINE NEGATIVE (NEGATIVE); PHENCYCLIDINE URINE SCREEN NEGATIVE (NEGATIVE)
[2024-02-13 17:36] LABS: BACTERIA URINE NONE SEEN; RBC URINE NONE SEEN /hpf (0-2); SQUAMOUS EPITHELIAL CELL URINE RARE /lpf (RARE/1+); WBC URINE 0-2 /hpf (0-2)
[2024-02-14] MEDS: ACETAMINOPHEN 325MG TABLET PO ONE (21:20)
[2024-02-15] MEDS: ONDANSETRON 4MG ODT PO ONE (00:58)
[2024-02-15] MEDS: RISPERIDONE 1MG TABLET PO SCH (10:08)
[2024-02-15 13:45] VITALS: BP 131/52; PULSE 57; RESP 14; TEMP 98.1
== END 2024-02-15 14:00 ==
LOC: ER 12:31
DX: F23 Brief psychotic disorder (principal); I10 Essential (primary) hypertension; Z20.822 Contact with and (suspected) exposure to COVID-19
CPT/HCPCS: 80053; 80305; 81003; 80307; 80329; 80320; 80165; 85025; 36415; 99285; 87426; 74176; Q0162; G0480